=== PATIENT | female | born 1995 | race American Indian/Alaskan Native ===

== ENCOUNTER 2020-03-02 02:06 | Emergency (ER) | payer SELFPAY ==
[2020-03-02 08:19] VITALS: BP 128/70
== END 2020-03-02 08:48 | disposition left against medical advice (07) ==
LOC: ED 02:06
DX: R07.89 Other chest pain (principal); Z53.21 Procedure and treatment not carried out due to patient leaving prior to being seen by health care provider
CPT/HCPCS: 93005